=== PATIENT | female | born 1965 | race American Indian/Alaskan Native ===

== ENCOUNTER 2020-07-24 05:21 | Emergency (ER) | payer OTHER ==
[2020-07-24 05:30] VITALS: BP 147/72
[2020-07-24 06:19] LABS: Basophils # (Auto) 0.1 K/mm3 (0.0-0.1); Basophils % (Auto) 0.4 % (0.0-1.8); Eosinophils % (Auto) 0.1 % (0.0-4.3); Hematocrit 39.2 % (30.3-42.9); Hemoglobin 13.2 gm/dl (10.1-14.3); Lymphocytes # (Auto) 1.8 K/mm3 (1.2-5.4); Lymphocytes % (Auto) 14.3 % (13.4-35.0); Mean Corpuscular HGB Conc 34 % (30-34); Mean Corpuscular Volume 94 fl (79-97); Monocytes # (Auto) 1.1 K/mm3 (0.0-0.8); Monocytes % (Auto) 8.6 % (0.0-7.3); Platelet Count 191 K/mm3 (140-440); Red Blood Count 4.18 M/mm3 (3.65-5.03); Red Cell Distribution Width 13.9 % (13.2-15.2)
[2020-07-24 06:34] LABS: Alanine Aminotransferase 21 units/L (7-56); Albumin 4.9 g/dL (3.9-5); BUN/Creatinine Ratio 21; Blood Urea Nitrogen 19 mg/dL (7-17); Calcium 10.4 mg/dL (8.4-10.2); Hemolysis Index 2
[2020-07-24] MEDS ORDERED: SODIUM CHLORIDE 0.9% 1000 ML 1,000 ML IV ONE ×3 (07:45→11:34)
[2020-07-24] MEDS ORDERED: MORPHINE 4 MG/1 ML INJ IV ONE (07:45)
[2020-07-24] MEDS ORDERED: ONDANSETRON 4 MG/2 ML INJ IV ONE ×2 (07:45→12:14)
[2020-07-24] MEDS ORDERED: FAMOTIDINE 20 MG/2 ML INJ IV ONE (07:45)
[2020-07-24] MEDS ORDERED: POTASSIUM CHLORIDE ER 20 MEQ TAB PO ONE (07:46)
--- NOTE | 2020-07-24 08:32 | Emergency Department Report ---
ED N/V/D HPI - General Chief complaint: Nausea/Vomiting/Diarrhea Stated complaint: DEHYDRATION Time Seen by Provider: 07/24/20 07:38 Source: patient Mode of arrival: Ambulatory Limitations: No Limitations - History of Present Illness Initial comments: 55-year female with no significant past medical or surgical history presents to the hospital complaining of nausea, vomiting, and diarrhea. Patient had diarrhea 2 days ago which have since resolved. Yesterday she developed nausea vomiting with inability to tolerate p.o. intake. She denies melena, he matochezia, hematemesis, or fever. She complains of throbbing and sharp upper and mid abdominal pain rated 9/10 intensity worse with palpation. No alleviating factors reported. Patient feels like she is dehydrated because she has not been able to eat or drink since yesterday. . Patient denies cough or cold symptoms, cold recent known Covid exposure, loss of sense of taste or smell. Patient tested negative for Covid in May and has not been retested since. PMD: Li - Related Data Previous Rx's Medication Instructions Recorded Last Taken Type Famotidine [Pepcid] 20 mg PO BID #20 tablet 07/24/20 Unknown Rx Ondansetron [Zofran Odt] 4 mg PO Q8HR PRN #20 tab.rapdis 07/24/20 Unknown Rx traMADoL [Ultram 50 MG tab] 50 mg PO Q6HR PRN #10 tablet 07/24/20 Unknown Rx Allergies Allergy/AdvReac Type Severity Reaction Status Date / Time No Known Allergies Allergy Verified 07/24/20 05:26 ED Review of Systems ROS: Stated complaint: DEHYDRATION Other details as noted in HPI Comment: All other systems reviewed and negative ED Past Medical Hx - Past Medical History Previous Medical History?: No - Surgical History Past Surgical History?: No - Social History Smoking Status: Never Smoker - Medications Home Medications: Home Medications Medication Instructions Recorded Confirmed Last Taken Type Famotidine [Pepcid] 20 mg PO BID #20 tablet 07/24/20 Unknown Rx Ondansetron [Zofran Odt] 4 mg PO Q8HR PRN #20 tab.rapdis 07/24/20 Unknown Rx traMADoL [Ultram 50 MG tab] 50 mg PO Q6HR PRN #10 tablet 07/24/20 Unknown Rx ED Physical Exam - General Limitations: No Limitations - Other Other exam information: General: No acute distress Head: Atraumatic Eyes: normal appearance ENT: Moist mucous membranes Neck: Normal appearance, no midline tenderness Chest: Clear to auscultation bilaterally CV: Regular rate and rhythm Abdomen: Soft, normal bowel sounds, mild mid epigastric tenderness to palpation, nondistended, no rebound or guarding Back: Normal inspection Extremity: Normal inspection, full range of motion Neuro: Alert O x 3, no facial asymmetry, speech clear, no gross motor sensory deficit Psych: Appropriate behavior Skin: No rash ED Course Vital Signs 07/24/20 07/24/20 05:24 08:07 Temperature 98.1 F Pulse Rate 86 Respiratory 18 22 Rate Blood Pressure 147/72 O2 Sat by Pulse 96 Oximetry - Reevaluation(s) Reevaluation #1: 07/24/20 11:35 Patient has had 2 L of normal saline and still no urine output. Provided p.o. fluids and third liter of normal saline ordered. 07/24/20 12:09 Patient was able to urinate therefore 1/3 L of normal saline canceled. Patient also tolerating p.o. water without difficulty 07/24/20 12:14 Patient vomited after drinking orange juice. Provided extra Zofran and will retry with p.o. water. ED Medical Decision Making - Lab Data Result diagrams: 07/24/20 06:06 07/24/20 06:06 Lab Results 07/24/20 07/24/20 07/24/20 Range/Units 06:06 06:06 Unknown WBC 12.4 H (4.5-11.0) K/mm3 RBC 4.18 (3.65-5.03) M/mm3 Hgb 13.2 (10.1-14.3) gm/dl Hct 39.2 (30.3-42.9) % MCV 94 (79-97) fl MCH 32 (28-32) pg MCHC 34 (30-34) % RDW 13.9 (13.2-15.2) % Plt Count 191 (140-440) K/mm3 Lymph % (Auto) 14.3 (13.4-35.0) % [place] % (Auto) 8.6 H (0.0-7.3) % Eos % (Auto) 0.1 (0.0-4.3) % Baso % (Auto) 0.4 (0.0-1.8) % Lymph # (Auto) 1.8 (1.2-5.4) K/mm3 [place] # (Auto) 1.1 H (0.0-0.8) K/mm3 Eos # (Auto) 0.0 (0.0-0.4) K/mm3 Baso # (Auto) 0.1 (0.0-0.1) K/mm3 Seg Neutrophils % 76.6 H (40.0-70.0) % Seg Neutrophils # 9.5 H (1.8-7.7) K/mm3 Sodium 144 (137-145) mmol/L Potassium 3.4 L (3.6-5.0) mmol/L Chloride 103.7 (98-107) mmol/L Carbon Dioxide 24 (22-30) mmol/L Anion Gap 20 mmol/L BUN 19 H (7-17) mg/dL Creatinine 0.9 (0.6-1.2) mg/dL Estimated GFR > 60 ml/min BUN/Creatinine Ratio 21 % Glucose 145 H (65-100) mg/dL Calcium 10.4 H (8.4-10.2) mg/dL Total Bilirubin 1.60 H (0.1-1.2) mg/dL AST 22 (5-40) units/L ALT 21 (7-56) units/L Alkaline Phosphatase 66 (35-129) units/L Total Protein 8.7 H (6.3-8.2) g/dL Albumin 4.9 (3.9-5) g/dL Albumin/Globulin Ratio 1.3 % Lipase 17 (13-60) units/L Urine Color Yellow (Yellow) Urine Turbidity Clear (Clear) Urine pH 5.0 (5.0-7.0) Ur Specific [place] > 1.059 H (1.003-1.030) Urine Protein >500 (Negative) mg/dL Urine Glucose (UA) Neg (Negative) mg/dL Urine Ketones Neg (Negative) mg/dL Urine Blood Mod (Negative) Urine Nitrite Neg (Negative) Urine Bilirubin Neg (Negative) Urine Urobilinogen < 2.0 (<2.0) mg/dL Ur Leukocyte Esterase Neg (Negative) Urine WBC (Auto) 2.0 (0.0-6.0) /HPF Urine RBC (Auto) 6.0 (0.0-6.0) /HPF U Epithel Cells (Auto) 2.0 (0-13.0) /HPF Urine Mucus 3+ /HPF - Radiology Data Radiology results: report reviewed CT abdomen pelvis w con INDICATION: Nausea, vomiting, diarrhea for 3 days. TECHNIQUE: All CT scans at this location are performed using the following dose modulation technique: Automated exposure control. Helical slices were obtained through the abdomen and Jimenez. 100 cc of O mnipaque 300 is administered. COMPARISON: None available. FINDINGS: Abdomen: There is a 4 mm nodule in the right lower lobe, series 2. There is a 5 mm perifissural nodule in the right lower lobe, series 2 image 7. The liver, pancreas, adrenal glands, and kidneys show no acute abnormality. Calcified granulomata are noted in the spleen. The aorta is normal in diameter. There is no adenopathy. There is no o bstruction, inflammation, or free air. There are no abnormal fluid collections. Pelvis: The appendix is unremarkable. There is no obstruction or inflammation. There are fibroids in the uterus. There are multiple phleboliths. On review of bone windows, no acute osseous abnormalities are seen. IMPRESSION: 1. There is no obstruction, inflammation, or free air. There are no abnormal collections. 2. There are uterine fibroids. 3. There is a 5 mm perifissural nodule in the right lower lobe and a 4 mm nodule in the right lower lobe lung. INCIDENTAL PULMONARY NODULE RECOMMENDATION Recommendation: Solid Nodule size <6 mm -- Single or Multiple - Low Risk Patient: No routine follow-up - High Risk Patient: Optional CT at 12 months Note These recommendations do not apply to lung cancer screening, patients with immunosuppression, or patients with known primary cancer. Note Newly detected indeterminate nodule in persons 35 years of age or older. Persons under the age of 35 should not receive follow-up unless there is a known primary cancer. Low Risk Patient -- minimal or absent history of smoking and of other known risk factors. High Risk Patient -- history of smoking or of other known risk factors. Nodule dimensions are average of long and short axes, rounded to the nearest millimeter. Based on 2017 Fleischner Society Guidelines found in Radiology 2017 284:228-243. [email or web address]://doi.[email or web address]/[email or web address] - Medical Decision Making 55-year female presents to the hospital recent nausea, vomiting, diarrhea likely secondary to gastroenteritis with concomitant dehydration. CT does not show any acute abnormality. Incidental lung nodule noted. Mild hypokalemia noted p.o. potassium provided. UA with increased specific gravity after receiving 2 L of normal saline without signs of infection. Patient was tolerating water without difficulty but did have a vomiting episode after orange juice. Additional Zofran provided. Further p.o. hydration will be recommended with outpatient monitoring of pulmonary nodule. Copy of CAT scan report provided d/c of lung nodule added to d/c jennifer Critical Care Time: No Critical care attestation.: If time is entered above; I have spent that time in minutes in the direct care of this critically ill patient, excluding procedure time. ED Disposition Clinical Impression: Gastroenteritis, Hypokalemia, Dehydration, Lung nodule Disposition: TO HOME OR SELFCARE Is pt being admited?: No Does the pt Need Aspirin: No Condition: Stable Instructions: Viral Gastroenteritis, Adult, Incidental Abnormal Radiological Finding Additional Instructions: Take the medication as prescribed. Follow-up with your doctor or doctor/clinic provided. Return if symptoms worsen as indicated by your discharge instructions. Prescriptions: Famotidine [Pepcid] 20 mg PO BID #20 tablet traMADoL [Ultram 50 MG tab] 50 mg PO Q6HR PRN #10 tablet PRN Reason: Pain Ondansetron [Zofran Odt] 4 mg PO Q8HR PRN #20 tab.rapdis PRN Reason: Nausea And Vomiting Referrals: PRIMARY CARE, [Primary Care Provider] - 3[facility] Days ([facility] Forms: Work/School Release Form(ED) Time of Disposition: 13:43
--- NOTE | 2020-07-24 09:10 | Cat Scan Report ---
CT abdomen pelvis w con INDICATION: Nausea, vomiting, diarrhea for 3 days. TECHNIQUE: All CT scans at this location are performed using the following dose modulation technique: Automated exposure control. Helical slices were obtained through the abdomen and Jimenez. 100 cc of Omnipaque 300 is administered. COMPARISON: None available. FINDINGS: Abdomen: There is a 4 mm nodule in the right lower lobe, series 2. There is a 5 mm perifissural nodul e in the right lower lobe, series 2 image 7. The liver, pancreas, adrenal glands, and kidneys show no acute abnormality. Calcified granulomata are noted in the spleen. The aorta is normal in diameter. There is no adenopathy. There is no obstruction, inflammation, or fr ee air. There are no abnormal fluid collections. Pelvis: The appendix is unremarkable. There is no obstruction or inflammation. There are fibroids in the uterus. There are multiple phleboliths. On review of bone windows, no acute osseous abnormalities are seen. IMPRESSION: 1. There is no obstruction, inflammation, or free air. There are no abnormal collections. 2. There are uterine fibroids. 3. There is a 5 mm perifissural nodule in the right lower lobe and a 4 mm nodule in the right lower l obe lung. INCIDENTAL PULMONARY NODULE RECOMMENDATION Recommendation: Solid Nodule size <6 mm -- Single or Multiple - Low Risk Patient: No routine follow-up - High Risk Patient: Optional CT at 12 months Note These recommendations do not apply to lung cancer screening, patients with immunosuppression, o r patients with known primary cancer. Note Newly detected indeterminate nodule in persons 35 years of age or older. Persons under the age of 35 should not receive follow-up unless there is a known primary cancer. Low Risk Patient -- minimal or absent history of smoking and of other known risk factors. High Risk Patient -- history of smoking or of other known risk factors. Nodule dimensions are average of long and short axes, rounded to the nearest millimeter. Based on 2017 Fleischner Society Guidelines found in Radiology 2017 284:228-243. [email or web address] Signer Name: Tej Valentino MD Signed: 07/24/2020 9:06 AM Workstation Name: [email or web address]
[2020-07-24 12:22] LABS: Bilirubin,Urine NEG (Negative); Blood,Urine MOD (Negative); Color,Urine Yellow (Yellow); Mucus,Urine 3+ /HPF; Urobilinogen,Urine < 2.0 mg/dL (<2.0)
[2020-07-24 12:25] LABS: Protein,Urine >500 mg/dL (Negative)
== END 2020-07-24 13:45 | disposition home or self-care (01) ==
LOC: ED 05:21
DX: K52.9 Noninfective gastroenteritis and colitis, unspecified (principal); E87.6 Hypokalemia; E86.0 Dehydration; R91.8 Other nonspecific abnormal finding of lung field; Z79.899 Other long term (current) drug therapy
CPT/HCPCS: 36415; 74177; 80053; 81001; 83690; 85025; 96361; 96374; 96375; 96376; 99284; J2270; J2405; J7030; Q9967

== ENCOUNTER 2022-04-05 16:46 | Emergency (ER) | payer OTHER ==
[2022-04-05 18:44] VITALS: BP 176/110
[2022-04-05 19:39] LABS: Basophils % (Auto) 0.7 % (0.0-1.8); Hematocrit 37.2 % (30.3-42.9); Hemoglobin 12.4 gm/dl (10.1-14.3); Lymphocytes # (Auto) 0.7 K/mm3 (1.2-5.4); Lymphocytes % (Auto) 12.8 % (13.4-35.0); Mean Corpuscular HGB Conc 33 % (30-34); Mean Corpuscular Volume 91 fl (79-97); Monocytes # (Auto) 0.4 K/mm3 (0.0-0.8); Monocytes % (Auto) 6.9 % (0.0-7.3); Platelet Count 273 K/mm3 (140-440); Red Blood Count 4.09 M/mm3 (3.65-5.03); Red Cell Distribution Width 14.5 % (13.2-15.2)
[2022-04-05 19:59] LABS: Alanine Aminotransferase 19 units/L (7-56); Albumin 4.9 g/dL (3.9-5); BUN/Creatinine Ratio 14; Blood Urea Nitrogen 11 mg/dL (7-17); Calcium 10.2 mg/dL (8.4-10.2); Hemolysis Index 21
[2022-04-05] MEDS ORDERED: LIDOCAINE VISCOUS 2% 15 ML ORAL LIQD PO ONE (23:38)
[2022-04-05] MEDS ORDERED: ALUM-MAG HYDROXIDE-SIMETHICONE 200-200-20MG/5ML ORAL LIQD 30 ML PO ONE (23:38)
--- NOTE | 2022-04-06 00:43 | Emergency Department Report ---
ED General Adult HPI - General Chief complaint: Abdominal Pain Stated complaint: VOMITING/NEED FLUIDS Time Seen by Provider: 04/05/22 23:26 Source: patient Mode of arrival: Ambulatory Limitations: No Limitations - History of Present Illness Initial comments: THIS IS A 57 YEAR OLD WHO STATES SHE HAS HISTORY OF PRE-DM AND GASTRITIS. CAME IN TODAY WITH NAUSEA AND VOMITING. ENDORSE EPIGASTRIC DISCOMFORT. DENIES ANY OTHER SYMPTOMS. DENIES FEER, CHILL, NIGHT SWEATS, DIZZINESS, LIGHTHEADED, BLURRY VISION, EAR PAIN, SORE THROAT, CHEST PAIN, PALPITATION, DYSPNEA, COUGH, DIARRHEA, CONSTIPATION, DYSURIA, MYALGIAR, ARTHRALGIA, NEW RASH/LESION, AND HEAT OR COLD INTOLERANCE. - Related Data Previous Rx's Medication Instructions Recorded Last Taken Type Famotidine [Pepcid] 20 mg PO BID #20 tablet 07/24/20 Unknown Rx Ondansetron [Zofran Odt] 4 mg PO Q8HR PRN #20 tab.rapdis 07/24/20 Unknown Rx traMADoL [Ultram 50 MG tab] 50 mg PO Q6HR PRN #10 tablet 07/24/20 Unknown Rx Pantoprazole [Protonix] 40 mg PO BID 30 Days #60 tablet 04/06/22 Unknown Rx Sucralfate [Carafate] 1 gm PO Q6HR 30 Days #120 tablet 04/06/22 Unknown Rx Allergies Allergy/AdvReac Type Severity Reaction Status Date / Time No Known Allergies Allergy Verified 04/05/22 18:44 ED Review of Systems ROS: Stated complaint: VOMITING/NEED FLUIDS Other details as noted in HPI Comment: All other systems reviewed and negative ED Past Medical Hx - Past Medical History Previous Medical History?: Yes Additional medical history: gastritis - Social History Smoking Status: Never Smoker - Medications Home Medications: Home Medications Medication Instructions Recorded Confirmed Last Taken Type Famotidine [Pepcid] 20 mg PO BID #20 tablet 07/24/20 Unknown Rx Ondansetron [Zofran Odt] 4 mg PO Q8HR PRN #20 tab.rapdis 07/24/20 Unknown Rx traMADoL [Ultram 50 MG tab] 50 mg PO Q6HR PRN #10 tablet 07/24/20 Unknown Rx Pantoprazole [Protonix] 40 mg PO BID 30 Days #60 tablet 04/06/22 Unknown Rx Sucralfate [Carafate] 1 gm PO Q6HR 30 Days #120 tablet 04/06/22 Unknown Rx ED Physical Exam - General Limitations: No Limitations General appearance: alert, in no apparent distress - Head Head exam: Present: atraumatic, normocephalic, normal inspection - Eye Eye exam: Present: normal appearance, PERRL, EOMI Pupils: Present: normal accommodation - ENT ENT exam: Present: normal exam, mucous membranes moist - Neck Neck exam: Present: normal inspection, full ROM - Respiratory Respiratory exam: Present: normal lung sounds bilaterally - Cardiovascular Cardiovascular Exam: Present: regular rate, normal rhythm, normal heart sounds - GI/Abdominal GI/Abdominal exam: Present: soft, normal bowel sounds. Absent: distended, tenderness, guarding, rebound, rigid - Extremities Exam Extremities exam: Present: normal inspection, full ROM, normal capillary refill - Back Exam Back exam: Present: normal inspection, full ROM - Neurological Exam Neurological exam: Present: alert, oriented X3, CN II-XII intact - Psychiatric Psychiatric exam: Present: normal affect, normal mood - Skin Skin exam: Present: normal color ED Course Vital Signs 04/05/22 18:41 Temperature 98.8 F Pulse Rate 88 Respiratory 18 Rate Blood Pressure 176/110 [Left] O2 Sat by Pulse 99 Oximetry - Reevaluation(s) Reevaluation #1: 04/06/22 00:50 LABS UNREMARKABLE. PATIENT INFORMED TO TAKE MEDICATION THAT'S PRESCRIBED FOR HER AND TO FOLLOW UP WITH PCP TO BE SEEN WITHIN 3 DAYS FOR FURTHER OUTPATIENT EVALUATION AND MANAGEMENT. ED Medical Decision Making - Lab Data Result diagrams: 04/05/22 19:26 04/05/22 19:26 Critical care attestation.: If time is entered above; I have spent that time in minutes in the direct care of this critically ill patient, excluding procedure time. ED Disposition Clinical Impression: Gastritis Disposition: 01 HOME / SELF CARE / HOMELESS Is pt being admited?: No Does the pt Need Aspirin: No Condition: Stable Instructions: Abdominal Pain (ED), Gastritis, Adult, [id number] Additional Instructions: TAKE MEDICATION THAT'S PRESCRIBED FOR YOU AND MAKE A FOLLOW UP APPOINTMENT WITH PRIMARY CARE PROVIDER OF YOUR CHOICE TO BE SEEN WITHIN 3 DAYS FOR FURTHER OUTPATIENT EVALUATION AND MANAGEMENT. Prescriptions: Sucralfate [Carafate] 1 gm PO Q6HR 30 Days #120 tablet Pantoprazole [Protonix] 40 mg PO BID 30 Days #60 tablet Forms: Work/School Release Form(ED) Time of Disposition: 00:51
[2022-04-06 00:46] LABS: Color,Urine Yellow (Yellow)
[2022-04-06 00:51] LABS: Mucus,Urine 2+ /HPF
== END 2022-04-06 01:00 | disposition home or self-care (01) ==
LOC: ED 16:46
DX: K29.70 Gastritis, unspecified, without bleeding (principal)
CPT/HCPCS: 36415; 80053; 81001; 83690; 85025; 99283